=== PATIENT | male | born 1955 | race Caucasian/White ===

== ENCOUNTER 2023-09-12 08:43 | Emergency (ER) | payer MEDICARE ==
[~2023-09-12] VITALS: Ht 182.9 cm; Wt 106.8 kg
[2023-09-12 08:45] VITALS: TEMP 97.1
[2023-09-12] MEDS: LIDOcaine 1% 30ml preserv. free vial IJ STA (09:47)
[2023-09-12] MEDS ORDERED: CEPH-585 PO (10:09)
[2023-09-12 10:13] VITALS: BP 124/82; PULSE 79; RESP 16; O2SAT 98
[2023-09-12] MEDS: TETanus/Pertussis (Acell)/Diphther VAC/PF (Tdap-Adult) 0.5ml syringe IMVAC ONE (10:17)
== END 2023-09-12 11:11 | disposition home or self-care (01) ==
LOC: ER 08:44
DX: S51.811A Laceration without foreign body of right forearm, initial encounter (principal); W26.9XXA Contact with unspecified sharp object(s), initial encounter; Y93.89 Activity, other specified; Y92.814 Boat as the place of occurrence of the external cause; Y99.8 Other external cause status
CPT/HCPCS: 12002; 90471; 90715; 99283; A6223; A6258; A6446; A6449